=== PATIENT | male | born 1965 | race Caucasian/White ===

== ENCOUNTER 2022-07-07 13:57 | Emergency (ER) | payer BC, MEDICAID ==
[~2022-07-07] VITALS: Ht 172.7 cm; Wt 81.6 kg
[2022-07-07] MEDS ORDERED: KETOROLAC TROMETHAMINE 15 MG INJ IM ONE (14:15)
[2022-07-07] MEDS ORDERED: CYCLOBENZAPRINE HCL 10 MG TABLET PO ONE (14:15)
[2022-07-07] MEDS ORDERED: HYDROCODONE/APAP 5-325MG TABLET PO ONE (14:15)
[2022-07-07] MEDS ORDERED: CYCLOBENZAPRINE HCL 10 MG TABLET ONE (14:18)
[2022-07-07] MEDS ORDERED: KETOROLAC TROMETHAMINE 15 MG INJ ONE (14:18)
[2022-07-07] MEDS ORDERED: HYDROCODONE/APAP 5-325MG TABLET ONE (14:18)
[2022-07-07] MEDS ORDERED: NAPR-1009 PO (17:01)
[2022-07-07] MEDS ORDERED: CYCL5TAB PO (17:01)
[2022-07-07] MEDS ORDERED: METH4TAB3 PO (17:01)
--- NOTE | 2022-07-07 17:43 | NUR ---
Patient discharged to home in stable condition. Written and verbal after care instructions given. Patient verbalizes understanding of instructions. Stressed follow up or return to ER for worsening s/s.
== END 2022-07-07 17:43 | disposition home or self-care (01) ==
LOC: ER 13:57
DX: M51.16 Intervertebral disc disorders with radiculopathy, lumbar region (principal); R20.2 Paresthesia of skin; E78.5 Hyperlipidemia, unspecified; Z88.0 Allergy status to penicillin
CPT/HCPCS: 99284; 72131; 96372; J1885; A4663